=== PATIENT | female | born 1995 | race African-American/Black ===

== ENCOUNTER 2017-03-15 03:00 | Emergency (ER) | payer SELFPAY ==
[~2017-03-15] VITALS: Ht 154.9 cm; Wt 105.0 kg
[2017-03-15] MEDS ORDERED: ALBUTEROL (0.083%) 2.5MG/3ML NEB HHN STA ×2 (03:26→05:18)
[2017-03-15] MEDS ORDERED: IPRATROPIUM BROMIDE (0.02%) 0.5MG/2.5ML NEB HHN STA ×2 (03:26→05:18)
[2017-03-15] MEDS ORDERED: PREDNISONE 20MG TABLET PO STA (03:26)
[2017-03-15 06:15] VITALS: BP 129/64
== END 2017-03-15 06:39 | disposition home or self-care (01) ==
LOC: ER 03:00
DX: J45.909 Unspecified asthma, uncomplicated (principal); Z98.890 Other specified postprocedural states; Z88.3 Allergy status to other anti-infective agents
CPT/HCPCS: 71010; 81025; 94640; 99284; J7512; J7611

== ENCOUNTER 2017-04-07 03:16 | Emergency (ER) | payer BC ==
[~2017-04-07] VITALS: Ht 154.9 cm; Wt 105.0 kg
[2017-04-07 07:26] VITALS: BP 123/53
[2017-04-07] MEDS ORDERED: DIPHENHYDRAMINE 25MG CAPSULE PO ONE (07:30)
[2017-04-07] MEDS ORDERED: PREDNISONE 20MG TABLET PO ONE (07:30)
[2017-04-07] MEDS ORDERED: FAMOTIDINE 20MG TABLET PO ONE (07:30)
== END 2017-04-07 09:40 | disposition home or self-care (01) ==
LOC: ER 04:01
DX: L27.0 Generalized skin eruption due to drugs and medicaments taken internally (principal); R22.0 Localized swelling, mass and lump, head; T36.0X5A Adverse effect of penicillins, initial encounter; Y92.098 Other place in other non-institutional residence as the place of occurrence of the external cause; J45.909 Unspecified asthma, uncomplicated; Z88.1 Allergy status to other antibiotic agents
CPT/HCPCS: 81025; 99284; J7512; Z7610; Q0163